=== PATIENT | female | born 1985 | race Caucasian/White ===

== ENCOUNTER 2020-05-09 10:34 | Emergency (ER) | payer BC ==
[~2020-05-09] VITALS: Ht 170.2 cm; Wt 78.0 kg
[2020-05-09 10:40] VITALS: BP 137/70
--- NOTE | 2020-05-09 10:45 | NUR ---
URINE SPECIMEN COLLECTED AND SENT TO LAB.
--- NOTE | 2020-05-09 10:55 | NUR ---
TECHT AT BEDSIDE FOR US.
[2020-05-09 11:00] LABS: APPEARANCE,URINE Clear (CLEAR); BILIRUBIN,URINE Negative (NEGATIVE); BLOOD, URINE Negative Ery/uL (NEGATIVE); COLOR,URINE Yellow (YELLOW); KETONES,URINE Negative (NEGATIVE); LEUKOCYTE ESTERASE ,URINE Trace (NEGATIVE); NITRITE, URINE Negative (NEGATIVE); PH,URINE 5.5 (5.0-8.0); PROTEIN,URINE Negative (NEGATIVE); UGLUCOSE Negative (NEGATIVE); UROBILINOGEN,URINE 0.2 EU/dL (0.2)
[2020-05-09 11:06] LABS: RBC,URINE 0-2 /HPF (0-2)
[2020-05-09 11:07] LABS: BACTERIA,URINE Few /HPF (None Seen); SQUAMOUS EPITHELIAL CELL,UR Moderate /HPF (None Seen)
--- NOTE | 2020-05-09 11:38 | NUR ---
Patient discharged to home in stable condition. Written and verbal after care instructions given. Patient verbalizes understanding of instruction.
== END 2020-05-09 11:40 | disposition home or self-care (01) ==
LOC: ER 10:40
DX: N83.202 Unspecified ovarian cyst, left side (principal)
CPT/HCPCS: 76856-TC; 81000-TC; 84703-TC